=== PATIENT | male | born 1975 | race Caucasian/White ===

== ENCOUNTER 2016-09-02 22:03 | Emergency (ER) | payer OTHER ==
[~2016-09-02] VITALS: Ht 177.8 cm; Wt 68.0 kg
[2016-09-02 23:03] VITALS: BP 122/63
[2016-09-02] MEDS ORDERED: LIDOCAINE 1% / SOD BICARB 8.4% 20 ML VIAL. IJ ONE (23:45)
[2016-09-03] MEDS ORDERED: CEPH500T PO (00:10)
--- NOTE | 2016-09-03 00:10 | PHYS DOC ---
Past Medical History Past Medical History: No Pertinent History Additional Past Medical Histor: PAST HISTORY OF NARCOTIC ADDICTION Past Surgical History: Other Additional Past Surgical Histo: Titanium plate&screws R)mandible,R) Tibial nail Alcohol Use: Sober Additional Information: sober december 2015 Drug Use: None Adult General Chief Complaint Chief Complaint: LACERATION/AVULSION [facility] HPI Patient is a 40 year old male presents with laceration to left index finger after cutting with a razor blade. Tetanus up to date. Review of Systems Review of Systems Constitutional: Denies fever or chills Eyes: Denies change in visual acuity, redness, or eye pain HENT: Denies nasal congestion or sore throat Respiratory: Denies cough or shortness of breath Cardiovascular: No additional information not addressed in HPI GI: Denies abdominal pain, nausea, vomiting, bloody stools or diarrhea : Denies dysuria or hematuria Musculoskeletal: Denies back pain or joint pain Integument: laceration left index finger Neurologic: Denies headache, focal weakness or sensory changes [] Endocrine: Denies polyuria or polydipsia [] Current Medications Current Medications Current Medications Medications (Trade) Dose Ordered Sig/Jhonny Start Time Stop Time Status Last Admin Dose Admin Lidocaine/Sodium Bicarbonate (Buffered Lidocaine 1%) 20 ml 1X ONCE 09/02/16 23:45 09/02/16 23:46 DC 09/02/16 23:39 20 ML Allergies Allergies Allergies Coded Allergies Type Severity Reaction Last Updated Verified naproxen Allergy Severe Anaphylaxis 11/06/13 Yes Physical Exam Physical Exam Constitutional: Well developed, well nourished, no acute distress, non-toxic appearance. [] HENT: Normocephalic, atraumatic, bilateral external ears normal, oropharynx moist, no oral exudates, nose normal. [] Eyes: PERRLA, EOMI, conjunctiva normal, no discharge. [] Neck: Normal range of motion, no tenderness, supple, no stridor. [] Cardiovascular:Heart rate regular rhythm, no murmur [] Lungs & Thorax: Bilateral breath sounds clear to auscultation [] Abdomen: Bowel sounds normal, soft, no tenderness, no masses, no pulsatile masses. [] Skin: 2cm lac to dorsal index finger Back: No tenderness, no CVA tenderness. [] Extremities: No tenderness, no cyanosis, no clubbing, ROM intact, no edema. [] Neurologic: Alert and oriented X 3, normal motor function, normal sensory function, no focal deficits noted. [] Psychologic: Affect normal, judgement normal, mood normal. [] Current Patient Data Vital Signs Vital Signs Date Time Temp Pulse Resp B/P Pulse Ox O2 Delivery O2 Flow Rate FiO2 09/02/16 23:03 98.0 72 18 96 Room Air 98.0 EKG EKG [] Radiology/Procedures Radiology/Procedures 2cm simple linear laceration to left index finger anesthetized with 1% buffered lidocaine, irrigated with 150 ml NS, no foreign body found. 5- 5.0 nylon sutures placed in a simple interrupted fashion and patient tolerated well. Bandage placed Impressions: 1. Finger laceration Course & Med Decision Making Course & Med Decision Making Pertinent Labs and Imaging studies reviewed. (See chart for details) [] Dragon Disclaimer Dragon Disclaimer This electronic medical record was generated, in whole or in part, using a voice recognition dictation system. Departure Departure Impression: Primary Impression: Finger laceration Disposition: HOME, SELF-CARE Condition: STABLE Referrals: NO PCP (PCP) Patient Instructions: Laceration Care, Adult, [id number] Additional Instructions: Wear splint until able to bend finger without tension or until sutures removed in 7-10 days. Return if any sign of infection. Take antibiotic as prescribed. Scripts Cephalexin 500 Mg Tablet1 Tab PO TID 10 Days Prov:MEE BERMUDEZ APRN 09/03/16 MEE BERMUDEZ APRN Sep 03, 2016 00:10
== END 2016-09-03 00:19 | disposition home or self-care (01) ==
LOC: ER 22:03
DX: S61.211A Laceration without foreign body of left index finger without damage to nail, initial encounter (principal); F11.20 Opioid dependence, uncomplicated; Z88.8 Allergy status to other drugs, medicaments and biological substances; W26.8XXA Contact with other sharp object(s), not elsewhere classified, initial encounter; Y93.89 Activity, other specified; Y92.89 Other specified places as the place of occurrence of the external cause; Y99.8 Other external cause status
CPT/HCPCS: 12001; 99283-25

== ENCOUNTER 2018-05-02 17:50 | Emergency (ER) | payer OTHER ==
[~2018-05-02 17:50] MED LIST: CEPH500T PO
--- NOTE | 2018-05-03 04:25 | PHYS DOC ---
Past Medical History Past Medical History: No Pertinent History Additional Past Medical Histor: PAST HISTORY OF NARCOTIC ADDICTION Past Surgical History: Other Additional Past Surgical Histo: Titanium plate&screws R)mandible,R) Tibial nail Alcohol Use: Sober Drug Use: None Adult General HPI HPI PT left without being seen Allergies Allergies Allergies Coded Allergies Type Severity Reaction Last Updated Verified naproxen Allergy Severe Anaphylaxis 11/06/13 Yes EKG EKG [] Radiology/Procedures Radiology/Procedures [] Departure Departure Impression: Primary Impression: Patient left without being seen Disposition: LEFT WITHOUT BEING SEEN Condition: LEFT WITHOUT BEING SEEN EMMA WHITAKER DO May 03, 2018 04:25
== END 2018-05-02 20:36 | disposition left against medical advice (07) ==
LOC: ER 17:50
DX: L08.9 Local infection of the skin and subcutaneous tissue, unspecified (principal); Z88.8 Allergy status to other drugs, medicaments and biological substances; Z53.21 Procedure and treatment not carried out due to patient leaving prior to being seen by health care provider